=== PATIENT | male | born 1980 | race Caucasian/White ===

== ENCOUNTER 2018-02-07 18:36 | Emergency (ER) | payer OTHER ==
--- NOTE | 2018-02-07 19:01 | ED Physician Documentation ---
Upper Extremity Injury - HISTORIAN Historian: patient - HPI Stated Complaint: left hand pain Chief Complaint: Upper Extremity Injury Additional Information: Patient presents to ED with left hand pain after punching a wall with his fist. He has pain in the left 5th metacarpal. Onset: hours (2) Where: home Severity: mild Duration: persistent since Context: other (hit wall with fist) Associated Symptoms: denies: tingling, numbness distally, feeling loss, loss of power to arms Modifying Factors: pain on movement Further Comments: no - ROS CONST: no problems CVS/RESP: denies: chest pain, shortness of breath NEURO: denies: headache MS/SKIN/LYMPH: none GI/: denies: nausea, vomiting - PAST HX Past History: Lt handed Allergies/Adverse Reactions: Allergies Allergy/AdvReac Type Severity Reaction Status Date / Time No Known Drug Allergies Allergy Verified 02/07/18 19:00 - SOCIAL HX Smoking History: non-smoker Alcohol Use: none Drug Use: none - FAMILY HX Family History: none - VITAL SIGNS Vital Signs: Vital Signs Temp Pulse Resp BP Pulse Ox 98.0 F 74 20 136/88 97 02/07/18 18:40 02/07/18 18:40 02/07/18 18:40 02/07/18 18:40 02/07/18 18:40 - REVIEWED ASSESSMENTS Nursing Assessment Reviewed: Yes Vitals Reviewed: Yes ED Results Lab/Radiology - Radiology Radiology Impressions: Left hand History: Hit wall with his fist Three views of the left hand were obtained. There are no comparison studies. Findings: There is an acute, complete fracture involving the distal 5th metacarpal bone. The 5th metacarpal head is displaced radially by approximately 4 mm relative to the metacarpal shaft. No additional osseous abnormalities are noted. The bones are normally mineralized. Impression: Acute fracture involving the distal left 5th metacarpal bone as described. Electronically signed on Feb 07, 2018 7:34:43 PM COSTUME DESIGNER by: Yady Nolasco - Orders Orders: ED Orders Category Date Time Status Hand Splints QDAY Care 02/07/18 19:29 Active HAND 3 VIEWS OR MORE [RAD] Stat Exams 02/07/18 Taken HYDROcodone /APAP 5/325 [[place] 5/325] Med 02/07/18 20:00 Discontinued 1 each PO NOW ONE Upper Extremity Injury Physic - Physical Exam General Appearance: no acute distress, alert Hand: normal ROM, soft tissue tenderness (head of left 5th metacarpal), swelling Wrist: normal inspection Elbow/Forearm: normal inspection Shoulder: normal inspection Neuro/Vascular/Tendon: no vascular compromise, motor nml, sensation nml Skin: warm,dry Head/ENT: nml inspection Neck/Back: nml inspection Resp/CVS: chest non-tender Abdomen: non-tender Discharge Clincal Impression: Fracture of metacarpal of left hand, closed Qualifiers: Encounter type: initial encounter Metacarpal bone: fifth Metacarpal location: neck Fracture alignment: displaced Qualified Code(s): S62.337A - Displaced fracture of neck of fifth metacarpal bone, left hand, initial encounter for closed fracture Referrals: Codi Mcgregor MD [Primary Care Provider] - 2 Days Additional Instructions: 1. Call [facility] to make an appointment for follow up. [phone] 2. Keep splint on until follow up with orthopedics 3. Take tylenol or ibuprofen for pain while at work. Decision to Admit: NO Date of Decison to Admit: 02/07/18 Decision Time: 20:11
[2018-02-07] MEDS ORDERED: HYDROcodone /APAP 5/325 1 EACH TABLET PO ONE (20:00)
--- NOTE | 2018-02-07 20:14 | Diagnostic Imaging Report ---
BRAULIO ROSADO [facility] [id number] [facility] [address] [address] Report Submission Date: Feb 07, 2018 7:34:43 PM MANAGER GALLERY Patient Study Name: NATHAN VICTORIA Date: Feb 07, 2018 7:02:01 PM MANAGER GALLERY Modality Type: DX Gender: M Description: UPPER EXTREMITY : 82 Institution: [facility] Physician: BRAULIO ROSADO Left hand History: Hit wall with his fist Three views of the left hand were obtained. There are no comparison studies. Findings: There is an acute, complete fracture involving the distal 5th metacarpal bone. The 5th metacarpal head is displaced radially by approximately 4 mm relative to the metacarpal shaft. No additional osseous abnormalities are noted. The bones are normally mineralized. Impression: Acute fracture involving the distal left 5th metacarpal bone as described. Electronically signed on Feb 07, 2018 7:34:43 PM MANAGER GALLERY by: Yady DEMPSEY
[2018-02-07 20:16] VITALS: BP 133/83
== END 2018-02-07 20:10 | disposition home or self-care (01) ==
LOC: ED 18:36
DX: S62.337A Displaced fracture of neck of fifth metacarpal bone, left hand, initial encounter for closed fracture (principal); W22.09XA Striking against other stationary object, initial encounter; Y92.009 Unspecified place in unspecified non-institutional (private) residence as the place of occurrence of the external cause
CPT/HCPCS: 29125; 73130; 99283